=== PATIENT | female | born 1960 | race Caucasian/White ===

== ENCOUNTER 2024-09-05 13:07 | Emergency (ER) | payer OTHER, SELFPAY ==
[2024-09-05 13:20] VITALS: BP 139/67
--- NOTE | 2024-09-05 14:33 | ED.GENMED ---
History of Present Illness
General
Chief Complaint: Ear Problem
Time Seen by Provider: 09/05/24 14:11
History of Present Illness
History of Present Illness:
63-year-old female presents to the emergency department for evaluation of left earlobe redness, swelling, and itching. She states she removed a tick from the anterior 2 days ago and was started on doxycycline as well as hydroxyzine by her primary
care physician. She reports the itching has gradually worsened however redness and pain has not spread. No fevers but did have occasional night sweats. Mild amount of pus coming from the earlobe. She was uncertain if the tick was engorged at the
time
Past History
Past History
ED Past Medical History: HTN and Other (Diverticulitis, colon polyps)
ED Past Surgical History: Gynecological (Biopsies)
Social History
Tobacco: Non-smoker
Alcohol: Occasional
Drug: None
Personal:
Living: with family
Employment: Employed
Family History
Family History: Other (non contribu)
Review of Systems
Review of Systems
Allergies reviewed?: Yes
All Other Systems: ROS reviewed and negative except as documented in HPI and ROS
Phy Exam
Physical Exam
Physical Exam:
GEN: Well appearing, NAD, WDWN
HEENT: Oral mucosa moist, no scleral icterus. Moderate erythema and swelling of the left earlobe adjacent to piercing site, no purulent discharge. Patchy papular lesions extending to the postauricular space with no palpable preauricular,
postauricular, or superficial cervical adenopathy
Cardiac: Regular rate
Lung: No respiratory distress, no tachypnea
MSK: No gross deformity or injuries
Skin: Good color, no pallor or jaundice, no rashes
Neuro: AO x3, moves all extremities freely
Psych: Calm, cooperative
Course
Vital Signs
Initial and Last Documented VS:
Initial Vital Signs
Temp Pulse BP Pulse Ox
97.6 F 67 139/67 97
09/05/24 13:20 09/05/24 13:20 09/05/24 13:20 09/05/24 13:20
Last Documented Vital Signs
Temp Pulse Resp BP Pulse Ox
97.6 F 67 18 139/67 97
09/05/24 13:20 09/05/24 13:20 09/05/24 14:16 09/05/24 13:20 09/05/24 13:20
MDM/Problems Addressed
MDM/Problems Addressed:
Agree with continuing doxycycline we will add Medrol Dosepak due to itching as there may be a local inflammatory or allergic reaction contributing to symptoms
*Pulse Oximetry
Patient hypoxic: no
Comment: 97% on room air
*Critical Care Note
Total Time (30-74mins, 75-104mins- exclusive of procedures): Not Applicable
ED Attending Note
-
Portions of this chart may have been created with voice recognition software.� Occasional wrong word or��sound alike� substitutions may have occurred due to the inherent limitations of voice recognition software.
Discharge Plan
Departure
Patient Disposition: Home (Routine Discharge)
Date of Disposition: 09/05/24
Time of Disposition: 14:34
Patient with high blood pressure during this ER visit?: No
Discharge Problem:
Cellulitis of left earlobe
Instructions: Cellulitis (skin infection) in adults - Discharge instructions
Prescriptions:
New
methylprednisolone [Medrol (Topher)] 4 mg tablets,dose pack
See Rx Instructions .ROUTE .COMPLEX Qty: 21 0RF
Rx Instructions:
orally per package directions
mupirocin [Centany] 2 % ointment
1 applic topical BID 7 Days Qty: 15 0RF
No Action
multivitamin [Multi-Day] 1 EACH tablet
1 ea PO DAILY Qty: 0 0RF
Rx Instructions:
One tab by mouth once daily.
levofloxacin 500 MG tablet
500 mg PO DAILY Qty: 5 0RF
Rx Instructions:
One tab by mouth once daily x 5 days.
losartan-hydrochlorothiazide 1 EACH tablet
1 ea PO DAILY Qty: 0 0RF
Rx Instructions:
One tab by mouth once daily.
metronidazole 500 MG tablet
500 mg PO TID Qty: 30 0RF
Rx Instructions:
One tab by mouth three times daily x 10 days.
furosemide 40 MG tablet
40 mg PO DAILY Qty: 3 0RF
diazepam [Valium] 5 mg tablet
5 mg PO TID PRN (Reason: muscle spasm) Qty: 10 0RF
Interventions
Interventions:
*Risk Screen - Suicide Last Done: 09/05/24 13:24
*General Assessment Last Done: 09/05/24 13:24
*Neglect/Abuse Screening Last Done: 09/05/24 13:24
*Nursing Disposition Last Done: 09/05/24 14:46
Discharge Date and Time
Discharge Date/Time: 09/05/24 14:46
Print Language: ITALIAN
== END 2024-09-05 14:46 | disposition home or self-care (01) ==
LOC: EMR 13:07
PROVIDERS: EMERGENCY PHYSICIAN Emergency Medicine; FAMILY PHYSICIAN Physician Assistant
DX: H60.12 Cellulitis of left external ear (principal); R61 Generalized hyperhidrosis; L29.9 Pruritus, unspecified; W57.XXXA Bitten or stung by nonvenomous insect and other nonvenomous arthropods, initial encounter; I10 Essential (primary) hypertension; K57.92 Diverticulitis of intestine, part unspecified, without perforation or abscess without bleeding; Z86.0100 Personal history of colon polyps, unspecified
CPT/HCPCS: 99283

== ENCOUNTER → 2024-12-22 14:27 | Outpatient (REF) | payer OTHER, SELFPAY | LOC: RAD 14:27 | PROVIDERS: ATTENDING PHYSICIAN Podiatrist Foot & Ankle Surgery; FAMILY PHYSICIAN Physician Assistant | DX: M25.571 Pain in right ankle and joints of right foot (principal) | CPT/HCPCS: 73630 ==

== ENCOUNTER 2025-02-28 09:23 | Emergency (ER) | payer OTHER, SELFPAY ==
[2025-02-28 09:24] VITALS: BP 160/87
[2025-02-28 09:49] VITALS: BMI 29.0
[2025-02-28 09:54] VITALS: BP 129/78
[2025-02-28 10:00] VITALS: BP 125/75
[2025-02-28 10:21] LABS: Hematocrit 40.5 % (37.0-47.0); Hemoglobin 14.5 g/dL (12.0-16.0); Mean Corp Hgb Conc. 35.8 g/dL (33.0-37.0); Mean Corpuscular Volume 89.2 fL (81.0-99.0); Nucleated Red Blood Cells % 0 %; Platelet Count 214 10^3/uL (130-400); Red Cell Dist. Width 11.9 % (11.5-14.5)
[2025-02-28] MEDS: ZOFRAN 4 MG IV (10:21)
[2025-02-28] MEDS: NSS 1000 IV (10:21)
[2025-02-28] MEDS: DILAUDID 0.5 MG IV (10:22)
[2025-02-28 10:32] LABS: ALT (SGPT) 33 U/L (0-35); AST (SGOT) 23 U/L (14-36); Albumin 4.4 g/dl (3.5-5.0); Alkaline Phosphatase 84 U/L (38-126); Blood Urea Nitrogen 15 mg/dl (7-17); Calcium 9.8 mg/dl (8.4-10.2); Carbon Dioxide 26 mmol/L (22-30); Chloride 100 mmol/L (98-107); Estimated Creatinine Clearance 86 ml/min; Glucose 133 mg/dl (70-99); Potassium 3.7 mmol/L (3.5-5.1); Sodium 135 mmol/L (135-145); Total Protein 7.5 g/dl (6.3-8.2); eGFR > 60.00
[2025-02-28 10:33] LABS: Urine Character Clear (Clear)
[2025-02-28 10:42] LABS: Urine Squamous Cell 16-20 /LPF (Few)
[2025-02-28 10:43] LABS: Urine Red Blood Cell None Seen /HPF (0-2)
[2025-02-28 11:16] VITALS: BP 138/69
--- NOTE | 2025-02-28 11:20 | ED.GENMED ---
History of Present Illness
General
Chief Complaint: Abdominal Pain
Source: patient
Exam Limitations: none
Time Seen by Provider: 02/28/25 09:36
Nursing documentation reviewed up to this point in time: agreed with
History of Present Illness
History of Present Illness:
see MDM
Past History
Past History
ED Past Medical History: HTN and Other (Diverticulitis, colon polyps)
ED Past Surgical History: Gynecological (Biopsies)
Social History
Tobacco: Non-smoker
Alcohol: Occasional
Drug: None
Personal:
Living: with family
Employment: Employed
Family History
Family History: Other (non contribu)
Phy Exam
Physical Exam
Physical Exam:
see MDM
Course
Orders/Labs/Results
Orders:
Orders
02/28/25 09:44
CBC/With Diff [Complete Blood Count/With Diff] Urgent
Comprehensive Metabolic Panel Urgent
02/28/25 10:09
CT Abd/Pel (IV only)-DH only Urgent
Comment:
Reason For Exam: LLQ pain, diarrhea, fever
0.9% Sodium Chloride 1000 ml [Nss] 1,000 ml IV BOLUS
HYDROmorphone [Dilaudid] 0.5 mg IV NOW STA
Ondansetron Injectable [Zofran] 4 mg IV NOW STA
02/28/25 10:23
Urinalysis Reflex To Culture Urgent
Date Specimen was Collected: 02/28/25
Time Specimen was Collected: 10:12
Urine Microscopic Reflex Cult Urgent
Urine Culture Urgent
LEEANNA Source: U
Specimen Description:
Date Specimen was Collected: 02/28/25
Time Specimen was Collected: 10:12
02/28/25 11:51
LevoFLOXacin [Levaquin] 750 mg PO NOW STA
MetroNIDAZOLE [Flagyl] 500 mg PO NOW STA
Abnormal Lab Results
02/28/25 02/28/25
09:44 10:23
MCH 31.9 H pg
(27.0-31.0)
Absolute Neuts (auto) 6.7 H 10^3/uL
(1.4-6.5)
Lymphocytes % 19.7 L %
(20.5-51.1)
Glucose 133 H mg/dl
(70-99)
Total Bilirubin 1.6 H mg/dl
(0.2-1.3)
Leukocyte Esterase Rfl 3+ A
(Negative)
Urine Bacteria (Reflex) Few A
(Negative)
Urine Albumin (Reflex) 2+ A
(Neg - Trace)
02/28/25 09:44
02/28/25 09:44
Vital Signs
Initial and Last Documented VS:
Initial Vital Signs
Temp Pulse Resp BP Pulse Ox
36.7 C 88 18 160/87 96
02/28/25 09:24 02/28/25 09:24 02/28/25 09:24 02/28/25 09:24 02/28/25 09:24
Last Documented Vital Signs
Temp Pulse Resp BP Pulse Ox
36.8 C 87 18 132/68 98
02/28/25 13:02 02/28/25 13:02 02/28/25 13:02 02/28/25 13:02 02/28/25 13:02
MDM/Problems Addressed
Differential Diagnosis Includes:
see MDM
MDM/Problems Addressed:
Note:
CHIEF COMPLAINT(S)
Diarrhea with abdominal pain
HISTORY OF PRESENT ILLNESS
The patient is a 64-year-old female with a history of diverticulitis who presents with diarrhea and abdominal pain, which began on Saturday. She reports significant pain located in her lower left abdomen and mentions a recent history of an upper
respiratory infection likely contracted from her granddaughter. She was initially treated with augmentin when her primary physician suspected a combined viral and bacterial infection. She is experiencing a pain and pressure in her abdomen and
wonders if her symptoms are connected to the antibiotic or an unrelated issue.
The patient has a prior history of diverticulitis and has been hospitalized for it before but has not used Augmentin (amoxicillin and clavulanate potassium) for treatment in the past; usually, she receives Ciprofloxacin and Metronidazole. She
mentions a history of complications following a colonoscopy, which resulted in an infection treated with antibiotics. She notes fluctuating fever over the last few days but denies cough. She suspects her current symptoms may be due to her recent
antibiotic course or related to prior diverticulitis episodes.
mild nausea now
710 pain
nothing tried today for pain\\
diarrhea is minimal not bloody
REVIEW OF SYSTEMS
- Gastrointestinal: Diarrhea, abdominal pain in the lower left side.
- General: Fever, off and on.
PHYSICAL EXAM
- General: Nursing notes reviewed and vital signs reviewed. No explicit examination findings were discussed.
GENERAL: Alert , in no apparent distress
EYE: pupils equal and reactive
NECK: Supple
ENT: o/p clr, mmm.
CARDIAC: Regular rate and rhythm .
LUNGS: Clear breath sounds bilaterally, no acute respiratory distress, no wheezes/rales/rhonchi
ABDOMEN: Soft, Mild left-sided abdominal tenderness
no r/g, no cvat, normal bowel sounds
NEUROLOGICAL: Alert and oriented, no focal neuro deficits
SKIN: Warm and dry, skin intact.
MUSCULOSKELETAL: No edema, well perfused. neg eliz's sign
PSYCH: Normal and appropriate interaction.
PROBLEM LIST
- Acute: Diarrhea with abdominal pain, recent fever.
- Chronic: History of diverticulitis.
PLAN
- The patient will be evaluated for recurrence or complications of diverticulitis.
- Consideration of whether the symptoms are antibiotic-related or indicative of a viral/bacterial infection.
DIFFERENTIAL DIAGNOSIS
The Differential Diagnosis includes, in no particular order and is not limited to:
1. Diverticulitis
2. Antibiotic-associated diarrhea
3. Clostridioides difficile infection
4. Viral gastroenteritis
5. Bacterial gastroenteritis
6. Irritable bowel syndrome
7. Inflammatory bowel disease
8. Urinary tract infection
9. Medication side effect
10. Gastroesophageal reflux disease (GERD)
CARE-UPDATE
02/28/25 - 11:45
The patient is experiencing an acute flare-up of sigmoid diverticulitis while being on antibiotics for a respiratory infection. Despite the antibiotic treatment, the patient developed a new fever and increased pain, indicating a failure of
outpatient therapy with the current medication. The patient has expressed a strong preference to manage the condition at home and has opted for a treatment plan involving Levaquin and Flagyl as the new antibiotic regimen. The patient will also be
provided with a limited supply of oxycodone for pain management, in addition to vffd-scl-qgxobit options such as Tylenol and ibuprofen. The current plan is to monitor the patient�s symptoms for 24 to 48 hours; if symptoms worsen or if a new fever
develops, reconsider hospital admission. The patient is instructed to maintain a clear liquid diet during this period. Initial doses of Levaquin and Flagyl have been administered in the clinic, and the patient is provided with a dosing schedule for
home treatment. The decision has been approved, pending confirmation with the supervising physician.
*Pulse Oximetry
SaO2: 96
Oxygen Mode of Delivery: Room air
Patient hypoxic: no (96)
*Critical Care Note
Total Time (30-74mins, 75-104mins- exclusive of procedures): Not Applicable
Update Note
Update Note:
03/03/2025 0614 AM
Patient's urine culture grew out Klebsiella, she is on Levaquin and sensitive to fluoroquinolones no treatment change required
ED Attending Note
-
Portions of this chart may have been created with voice recognition software.� Occasional wrong word or��sound alike� substitutions may have occurred due to the inherent limitations of voice recognition software.
Discharge Plan
Departure
Patient Disposition: Home (Routine Discharge)
Date of Disposition: 02/28/25
Time of Disposition: 12:47
Patient with high blood pressure during this ER visit?: No
Discharge Problem:
Diverticular disease
Instructions: Diverticulitis (DC)
Prescriptions:
New
levofloxacin 500 mg tablet
500 mg PO DAILY Qty: 6 0RF
metronidazole 500 mg tablet
500 mg PO TID Qty: 21 0RF
oxycodone 5 mg tablet
5 mg PO BID PRN (Reason: Pain) Qty: 2 0RF
No Action
multivitamin [Multi-Day] 1 EACH tablet
1 ea PO DAILY Qty: 0 0RF
Rx Instructions:
One tab by mouth once daily.
levofloxacin 500 MG tablet
500 mg PO DAILY Qty: 5 0RF
Rx Instructions:
One tab by mouth once daily x 5 days.
losartan-hydrochlorothiazide 1 EACH tablet
1 ea PO DAILY Qty: 0 0RF
Rx Instructions:
One tab by mouth once daily.
metronidazole 500 MG tablet
500 mg PO TID Qty: 30 0RF
Rx Instructions:
One tab by mouth three times daily x 10 days.
furosemide 40 MG tablet
40 mg PO DAILY Qty: 3 0RF
diazepam [Valium] 5 mg tablet
5 mg PO TID PRN (Reason: muscle spasm) Qty: 10 0RF
methylprednisolone [Medrol (Topher)] 4 mg tablets,dose pack
See Rx Instructions .ROUTE .COMPLEX Qty: 21 0RF
Rx Instructions:
orally per package directions
mupirocin [Centany] 2 % ointment
1 applic topical BID 7 Days Qty: 15 0RF
Referrals:
Isabel Malagon PA-C [Family Provider, Internal Medicine]
Activity Restrictions/Additional Instructions:
You have diverticulitis. You should try clear liquids for 24 to 48 hours. For pain you can use Tylenol and ibuprofen. Only if the pain is severe you could try a dose of oxycodone twice a day, I am only giving you 2 tablets. If you are needing
more pain medication you should probably return to the emergency department. Take Levaquin once a day for the next 6 days. We gave your first dose here. Take Flagyl 1 more time today and then start 3 times a day for 7 days. Have a low threshold
to return to the emergency department for worsening pain, continued fever despite antibiotics, lethargy, vomiting etc.
Interventions
Interventions:
*Risk Screen - Suicide Last Done: 02/28/25 09:24
*General Assessment Last Done: 02/28/25 09:56
*Neglect/Abuse Screening Last Done: 02/28/25 09:24
*ED COVID-19 Vaccine History Last Done: 02/28/25 09:24
*ED Influenza Vaccine History Last Done: 02/28/25 09:24
[facility] Fall Risk Assessment Tool Last Done: 02/28/25 09:23
*Nursing Disposition Last Done: 02/28/25 13:02
VQ-Czeamf-Mty[facility]xow[facility] Assessment Last Done: 02/28/25 09:55
Discharge Date and Time
Discharge Date/Time: 02/28/25 13:03
Print Language: [email or web address]
[2025-02-28] MEDS: FLAGYL 500 MG PO (11:57)
[2025-02-28] MEDS: LEVAQUIN 750 MG PO (11:57)
[2025-02-28 12:00] VITALS: BP 139/73
[2025-02-28 13:02] VITALS: BP 132/68
== END 2025-02-28 13:03 | disposition home or self-care (01) ==
LOC: EMR 09:23
PROVIDERS: Physician Assistant; EMERGENCY PHYSICIAN Emergency Medicine; FAMILY PHYSICIAN Physician Assistant
DX: K57.32 Diverticulitis of large intestine without perforation or abscess without bleeding (principal); I10 Essential (primary) hypertension
CPT/HCPCS: 99284; 96374; 96375; 96361; 74177; 80053; 81003; 81015; 85025; 87077; 87086; 87186; Q9967

== ENCOUNTER → 2025-03-17 12:10 | Outpatient (REF) | payer OTHER, SELFPAY | LOC: WDC 12:10 | PROVIDERS: ATTENDING PHYSICIAN Nurse Practitioner Adult Health; FAMILY PHYSICIAN Physician Assistant | DX: Z12.31 Encounter for screening mammogram for malignant neoplasm of breast (principal) | CPT/HCPCS: 77063; 77067 ==